=== PATIENT | female | born 1955 ===

== ENCOUNTER 2024-12-28 06:14 | Day surgery (SDC) | payer OTHER, SELFPAY | END 2024-12-28 15:28 | disposition home or self-care (01) | LOC: GI 06:14 | PROVIDERS: ATTENDING PHYSICIAN Internal Medicine | DX: Z12.11 Encounter for screening for malignant neoplasm of colon (principal); Z80.0 Family history of malignant neoplasm of digestive organs | CPT/HCPCS: G0105 ==